=== PATIENT | female | born 1990 | race Caucasian/White ===

== ENCOUNTER 2017-01-30 03:25 | Inpatient (IN) ==
[2017-01-30 03:45] LABS: URINE SOURCE VOIDED
[2017-01-30 03:46] LABS: BILIRUBIN URINE NEGATIVE (NEGATIVE); BLOOD URINE NEGATIVE (NEGATIVE); CLARITY CLEAR (CLEAR); COLOR YELLOW; GLUCOSE URINE NEGATIVE (NEGATIVE); LEUKOCYTES URINE 2+ (NEGATIVE); NITRITE URINE NEGATIVE (NEGATIVE); PROTEIN URINE NEGATIVE (NEGATIVE); SP GRAVITY URINE 1.005; UROBILINOGEN URINE NORMAL
[2017-01-30] MEDS ORDERED: PEPCID IV PRN (03:53)
[2017-01-30] MEDS ORDERED: REGLAN PO ONE (03:53)
[2017-01-30] MEDS ORDERED: TYLENOL PO PRN (03:53)
[2017-01-30] MEDS ORDERED: STADOL IV PRN (03:53)
[2017-01-30] MEDS ORDERED: PEPCID PO PRN (03:53)
[2017-01-30] MEDS ORDERED: KEFZOL 1 GM/D5W 1 GM/50 ML IVPB IV PRN (03:53)
[2017-01-30] MEDS ORDERED: LR 1,000 ML IV SCH (03:53)
[2017-01-30] MEDS ORDERED: PITOCIN 30 UNITS/LR 30 UNITS/500 ML IV.SOLN IV SCH (03:53)
[2017-01-30] MEDS ORDERED: PEPCID PO ONE (03:53)
[2017-01-30] MEDS ORDERED: ZOFRAN IV PRN (03:53)
[2017-01-30] MEDS ORDERED: SODIUM CHLORIDE 0.9% INJ SCH (04:00)
[2017-01-30 04:13] LABS: MANUAL DIFF NEEDED? NO
[2017-01-30 04:16] LABS: BASO% 0.5 % (0.0-0.8); EOS% 0.8 % (0.0-10.0); HEMATOCRIT 36.2 % (37.0-47.0); HEMOGLOBIN 12.5 g/dL (12.0-16.0); IMM GRAN# 0.27 X1000 (0.0-0.04); IMM GRAN% 2.2 % (0.0-0.5); LYMPH% 19.1 % (20.5-51.1); MCH 32.8 PG (27-31); MCHC 34.5 g/dL (33-37); MONO# 1.17 X1000 (0.11-0.59); MONO% 9.7 % (1.7-9.3); MPV 11.5 FL (7.4-10.4); NEUT% 67.7 % (42.2-75.2); PLT 174 X1000 (130-400); RBC 3.81 XMIL (4.2-5.4)
[2017-01-30] MEDS ORDERED: MINERAL OIL ONE (04:30)
[2017-01-30] MEDS ORDERED: XYLOCAINE-MPF 1% ONE (04:30)
[2017-01-30] MEDS ORDERED: FENTANYL-BUPIV-NS 2 MCG-0.1% 200 ML ONE (04:30)
[2017-01-30] MEDS ORDERED: XYLOCAINE-MPF 1% 5 ML ONE (04:30)
[2017-01-30] MEDS ORDERED: FENTANYL-BUPIV-NS 2 MCG-0.1% 200 ML EPIDURAL SCH (06:00)
[2017-01-30] MEDS ORDERED: NORCO-5 PO PRN (08:39)
[2017-01-30] MEDS ORDERED: PITOCIN 30 UNITS/LR 30 UNITS/500 ML IV.SOLN IV ONE (08:39)
[2017-01-30] MEDS ORDERED: M-M-R II VACCINE SUBQ ONE (08:39)
[2017-01-30] MEDS ORDERED: CYTOTEC PO PRN (08:39)
[2017-01-30] MEDS ORDERED: XYLOCAINE-MPF 1% INJ PRN (08:39)
[2017-01-30] MEDS ORDERED: MINERAL OIL PO PRN (08:39)
[2017-01-30] MEDS ORDERED: BENADRYL PO PRN (08:39)
[2017-01-30] MEDS ORDERED: PERI MEDS (DERMOPLAST/NUPERCAINAL/TUCKS) MISC PRN (08:39)
[2017-01-30] MEDS ORDERED: PITOCIN IM PRN (08:39)
[2017-01-30] MEDS ORDERED: HYDROXYZINE IM PRN (08:39)
[2017-01-30] MEDS ORDERED: PITOCIN 20 UNITS/LR 20 UNITS/1,000 ML IV.SOLN IV SCH (08:39)
[2017-01-30] MEDS ORDERED: HYDROXYZINE PO PRN (08:39)
[2017-01-30] MEDS ORDERED: PERCOCET-5 PO PRN (08:39)
[2017-01-30] MEDS ORDERED: BENADRYL IV PRN (08:39)
[2017-01-30] MEDS ORDERED: BOOSTRIX VACCINE IM ONE (08:39)
[2017-01-30] MEDS ORDERED: AMBIEN PO PRN (08:39)
[2017-01-30] MEDS ORDERED: PERCOCET-10 PO PRN (08:39)
[2017-01-30] MEDS ORDERED: MOTRIN PO PRN (08:39)
--- NOTE | 2017-01-30 11:32 | OPERATIVE NOTE ---
PROCEDURE DATE: 01/30/2017 DELIVERING PHYSICIAN: Dr. Phil Lindsey. TYPE OF DELIVERY: Spontaneous controlled vaginal delivery. ANESTHESIA: Epidural. FINDINGS: At 0745 a 6 pound 15 ounce female infant was delivered in occiput anterior presentation. Apgars were 7 at 1 minute, 8 at 5 minutes and 10 at 10 minutes. SUMMARY: Yuli Cristina is 3, para 1-0-0-1, at term gestation. Her blood type is A positive. Rubella immune. Hepatitis B surface antigen, HIV, and group B strep were negative. She has had an uncomplicated . She presented to Labor and Delivery early this morning with spontaneous labor. She was 6-7 cm upon admission. She was admitted. An epidural was placed for labor pain management. Membranes were ruptured revealing clear fluid. She progressed to labor without signs of stress or dystocia. She became complete and began pushing. She rapidly crowned. At that point she was placed in the dorsal lithotomy position. Spontaneous controlled vaginal delivery occurred. Once the infant's head was delivered, the oropharynx was bulb suctioned. The shoulders and body delivered without complications. Cord was clamped and cut. The infant was handed to the nurses for further care and evaluation. did require some blow- by O2. Cord blood was obtained. Placenta was spontaneously delivered. It was intact. There was a small right labial laceration which was repaired using a [id number] 3-0 Vicryl suture. Blood loss approximately 150 mL. There no complications. Patient remained in the LDR recovering without difficulty. cc: Phil Lindsey MD
[2017-01-30] MEDS: PRECARE PO SCH (11:50)
[2017-01-30] MEDS: NORCO-10 PO PRN ×3 (11:50→19:31)
[2017-01-30] MEDS: MOTRIN PO PRN ×2 (11:50→19:31)
[2017-01-30] MEDS: PERICOLACE PO SCH (21:13)
[2017-01-31] MEDS: NORCO-10 PO PRN ×3 (01:35→22:13)
[2017-01-31 06:32] LABS: HEMATOCRIT 29.3 % (37.0-47.0); HEMOGLOBIN 9.5 g/dL (12.0-16.0); MCH 31.7 PG (27-31); MCHC 32.4 g/dL (33-37); MCV 97.7 FL (81-99); MPV 11.8 FL (7.4-10.4)
[2017-01-31] MEDS: MOTRIN PO PRN ×2 (08:09→18:47)
[2017-01-31] MEDS: NORCO-5 PO PRN ×2 (08:10→12:54)
[2017-01-31] MEDS: PRECARE PO SCH (08:10)
[2017-01-31] MEDS: PERICOLACE PO SCH (22:13)
[2017-02-01] MEDS: NORCO-10 PO PRN ×2 (01:54→08:51)
[2017-02-01] MEDS: MOTRIN PO PRN (05:04)
[2017-02-01] MEDS: PRECARE PO SCH (08:51)
[2017-02-01 08:54] VITALS: BP 111/68
== END 2017-02-01 12:10 | disposition home or self-care (01) ==
LOC: P.OPLD 03:25 → P.LD 03:28
PROVIDERS: ADMIT Obstetrics & Gynecology; ATTEND Obstetrics & Gynecology